=== PATIENT | female | born 1965 | race Two or more races ===

== ENCOUNTER 2022-12-25 11:30 | Emergency (ER) | payer MEDICAID ==
[~2022-12-25] VITALS: Ht 177.8 cm; Wt 99.8 kg
--- NOTE | 2022-12-25 11:45 | NUR ---
C/O GENERALIZED ABDOMINAL PAIN X 4 DAYS WITH DIARRHEA, NAUSEA & VOMITIN
--- NOTE | 2022-12-25 11:50 | NUR ---
AT BEDSIDE FOR EVAL
--- NOTE | 2022-12-25 12:25 | NUR ---
BLOOD / URINE SAMPLE TAKEN SENT TO LAB
--- NOTE | 2022-12-25 12:25 | NUR ---
PATIENT TAKEN TO CT
--- NOTE | 2022-12-25 12:25 | NUR ---
IV line 20 g LAC
[2022-12-25 12:32] LABS: HEMATOCRIT 48 % (33-45); HEMOGLOBIN 15.9 g/dL (11.5-14.8); LYMPHOCYTES % (AUTO) 20.4 % (20.0-44.0); MEAN CORPUSCULAR HGB CONC 33 g/dl (31.0-36.0); MEAN CORPUSCULAR VOLUME 89 fL (82-100); MONOCYTES # (AUTO) 0.3 K/uL (0.1-1.30); MONOCYTES % (AUTO) 6.7 % (2.0-12.0); NEUTROPHILS # (AUTO) 3.4 K/uL (1.8-8.9); NEUTROPHILS % (AUTO) 68.9 % (43.0-81.0); PLATELET COUNT (AUTO) 234 K/uL (150-450); RED BLOOD CELL COUNT(AUTO) 5.35 MIL/uL (4.0-5.2); WHITE BLOOD COUNT (AUTO) 4.9 K/uL (4.3-11.0)
[2022-12-25 12:50] LABS: CALCIUM, SERUM 9.5 mg/dL (8.5-10.1); CREATININE 0.7 mg/dL (0.6-1.3); POTASSIUM 4.2 mmol/L (3.5-5.1)
[2022-12-25 13:01] LABS: BILIRUBIN,URINE NEGATIVE (NEGATIVE); COLOR,URINE YELLOW (YELLOW); LEUKOCYTE ESTERASE ,URINE NEGATIVE (NEGATIVE); NITRITE, URINE NEGATIVE (NEGATIVE); PROTEIN,URINE NEGATIVE (NEGATIVE); UGLUCOSE NEGATIVE (NEGATIVE); UROBILINOGEN,URINE 0.2 EU/dL (0.2)
[2022-12-25 13:04] LABS: BACTERIA,URINE Rare /HPF (None Seen); SQUAMOUS EPITHELIAL CELL,UR Few /HPF (None Seen); WBC,URINE 0-2 /HPF (0-3)
[2022-12-25 13:07] LABS: ALBUMIN 3.6 g/dL (3.4-5.0); BILIRUBIN,DIRECT 0.2 mg/dL (0.0-0.2); BILIRUBIN,TOTAL 1.1 mg/dL (0.2-1.0); TOTAL PROTEIN, SERUM 6.8 g/dL (6.4-8.2)
[2022-12-25] MEDS ORDERED: CIPR-262 PO (14:02)
[2022-12-25 14:21] VITALS: BP 126/77
--- NOTE | 2022-12-25 14:21 | NUR ---
IV removed. Catheter intact and site benign. Pressure and 4x4 applied to site. No bleeding noted.
--- NOTE | 2022-12-25 14:21 | NUR ---
Patient discharged to home in stable condition. Written and verbal after care instructions given. Patient verbalizes understanding of instruction.
== END 2022-12-25 14:22 | disposition home or self-care (01) ==
LOC: ER 11:38
DX: K52.9 Noninfective gastroenteritis and colitis, unspecified (principal); R10.84 Generalized abdominal pain; Z60.2 Problems related to living alone; Z79.899 Other long term (current) drug therapy
CPT/HCPCS: 36415; 80048-TC; 80076-TC; 81001; 83690-TC; 84703-TC; 85025-TC; 87086-TC